=== PATIENT | male | born 1995 | race American Indian/Alaskan Native ===

== ENCOUNTER 2020-04-25 04:02 | Emergency (ER) | payer SELFPAY ==
[2020-04-25] MEDS ORDERED: ALUM-MAG HYDROXIDE-SIMETHICONE 200-200-20MG/5ML ORAL LIQD 30 ML PO ONE (04:24)
[2020-04-25] MEDS ORDERED: LIDOCAINE VISCOUS 2% 15 ML ORAL LIQD PO ONE (04:24)
[2020-04-25] MEDS ORDERED: SODIUM CHLORIDE 0.9% 1000 ML 1,000 ML IV ONE (04:24)
[2020-04-25] MEDS ORDERED: FAMOTIDINE 20 MG/2 ML INJ IV ONE (04:24)
[2020-04-25] MEDS ORDERED: ONDANSETRON 4 MG/2 ML INJ IV ONE (04:25)
--- NOTE | 2020-04-25 05:06 | XRay Report ---
CHEST 1 VIEW INDICATION / CLINICAL INFORMATION: dyspnea. FINDINGS: SUPPORT DEVICES: None. HEART / MEDIASTINUM: No significant abnormality. LUNGS / PLEURA: No significant pulmonary or pleural abnormality. No pneumothorax. ADDITIONAL FINDINGS: No significant additional findings. IMPRESSION: 1. No acute findings. Signer Name: Umair Abreu MD Signed: 04/25/2020 5:01 AM Workstation Name: [id number]
[2020-04-25 05:18] LABS: Basophils % (Auto) 0.3 % (0.0-1.8); Eosinophils % (Auto) 0.3 % (0.0-4.3); Hematocrit 44.8 % (35.5-45.6); Hemoglobin 15.3 gm/dl (11.8-15.2); Lymphocytes # (Auto) 0.9 K/mm3 (1.2-5.4); Lymphocytes % (Auto) 7.3 % (13.4-35.0); Mean Corpuscular HGB Conc 34 % (32-34); Mean Corpuscular Volume 97 fl (84-94); Monocytes # (Auto) 0.8 K/mm3 (0.0-0.8); Monocytes % (Auto) 6.3 % (0.0-7.3); Platelet Count 374 K/mm3 (140-440); Red Blood Count 4.62 M/mm3 (3.65-5.03); Red Cell Distribution Width 14.7 % (13.2-15.2)
[2020-04-25 05:40] LABS: Alanine Aminotransferase 15 units/L (7-56); Albumin 4.5 g/dL (3.9-5); BUN/Creatinine Ratio 6; Blood Urea Nitrogen 9 mg/dL (9-20); Calcium 10.1 mg/dL (8.4-10.2); Hemolysis Index 8
--- NOTE | 2020-04-25 06:27 | Emergency Department Report ---
ED General Adult HPI - General Chief complaint: Dyspnea/Respdistress Stated complaint: ANTONIO Source: patient Mode of arrival: Ambulatory Limitations: No Limitations - History of Present Illness Initial comments: Patient is a 25-year-old -Algerian male with a history of HIV who presents to the ED with acute onset shortness of breath, lightheadedness generalized fatigue and body aches as well as abdominal pain after dancing in a competition about 1 hour ago. Patient states that the dancing was so intense that she is almost passed out because of persistent lightheadedness and shortness of breath. Patient denies syncope, seizures, chest pain, dizziness, diarrhea, nausea and vomiting, headache, dysuria, urinary frequency and urgency, sore throat, nasal and sinus congestion, change in vision or testicular pain. MD Complaint: Lightheadness; Shortness of breath; abdominal pain; fatigue -: Sudden, hour(s) (1) Location: chest, abdomen Radiation: non-radiation Severity scale (0 -10): 3 Quality: aching, dull Consistency: intermittent Improves with: none Worsens with: none Associated Symptoms: denies other symptoms, malaise, shortness of breath, weakness. denies: confusion, chest pain, cough, diaphoresis, fever/chills, headaches, loss of appetite, nausea/vomiting, rash, seizure, syncope Treatments Prior to Arrival: none - Related Data Previous Rx's Medication Instructions Recorded Last Taken Type Dicyclomine [Bentyl] 20 mg PO Q6H PRN #24 tablet 04/25/20 Unknown Rx Famotidine [Pepcid] 20 mg PO BID #60 tablet 04/25/20 Unknown Rx hydrOXYzine PAMOATE [Vistaril] 25 mg PO Q8HR PRN #30 capsule 04/25/20 Unknown Rx Allergies Allergy/AdvReac Type Severity Reaction Status Date / Time ceftriaxone [From Rocephin] Allergy Hives Verified 04/25/20 04:34 ED Review of Systems ROS: Stated complaint: ANTONIO Other details as noted in HPI Constitutional: malaise, weakness. denies: chills, fever Eyes: denies: eye pain, eye discharge, vision change ENT: denies: ear pain, throat pain, dental pain, congestion Respiratory: shortness of breath. denies: cough, wheezing Cardiovascular: denies: chest pain, palpitations Endocrine: no symptoms reported Gastrointestinal: abdominal pain. denies: nausea, vomiting, diarrhea Genitourinary: denies: urgency, dysuria Musculoskeletal: denies: back pain, joint swelling, arthralgia Skin: denies: rash, lesions Neurological: denies: headache, weakness, paresthesias Psychiatric: anxiety. denies: depression Hematological/Lymphatic: denies: easy bleeding, easy bruising ED Past Medical Hx - Past Medical History Previous Medical History?: Yes Hx HIV: Yes Additional medical history: Bronchitis - Surgical History Past Surgical History?: No - Social History Smoking Status: Current Every Day Smoker Substance Use Type: Marijuana - Medications Home Medications: Home Medications Medication Instructions Recorded Confirmed Last Taken Type Dicyclomine [Bentyl] 20 mg PO Q6H PRN #24 tablet 04/25/20 Unknown Rx Famotidine [Pepcid] 20 mg PO BID #60 tablet 04/25/20 Unknown Rx hydrOXYzine PAMOATE [Vistaril] 25 mg PO Q8HR PRN #30 capsule 04/25/20 Unknown Rx ED Physical Exam - General Limitations: No Limitations General appearance: alert, in no apparent distress - Head Head exam: Present: atraumatic, normocephalic, normal inspection - Eye Eye exam: Present: normal appearance, PERRL, EOMI Pupils: Present: normal accommodation - ENT ENT exam: Present: normal exam, normal orophraynx, mucous membranes moist, TM's normal bilaterally, normal external ear exam - Neck Neck exam: Present: normal inspection, full ROM - Respiratory Respiratory exam: Present: normal lung sounds bilaterally. Absent: respiratory distress, wheezes, rales, stridor, chest wall tenderness, accessory muscle use, decreased breath sounds, prolonged expiratory - Cardiovascular Cardiovascular Exam: Present: normal rhythm, tachycardia, normal heart sounds. Absent: systolic murmur, diastolic murmur, rubs, gallop - GI/Abdominal GI/Abdominal exam: Present: soft, normal bowel sounds. Absent: tenderness, hyperactive bowel sounds, hypoactive bowel sounds, organomegaly, mass - Extremities Exam Extremities exam: Present: normal inspection, full ROM, normal capillary refill - Back Exam Back exam: Present: normal inspection, full ROM. Absent: tenderness, CVA tenderness (R), CVA tenderness (L), muscle spasm, paraspinal tenderness, vertebral tenderness - Neurological Exam Neurological exam: Present: alert, oriented X3, CN II-XII intact, normal gait, reflexes normal - Psychiatric Psychiatric exam: Present: normal affect, anxious - Skin Skin exam: Present: warm, dry, intact, normal color. Absent: rash ED Course Vital Signs 04/25/20 04:05 Temperature 97.8 F Pulse Rate 120 H Respiratory 18 Rate Blood Pressure 127/80 O2 Sat by Pulse 96 Oximetry ED Medical Decision Making - Lab Data Result diagrams: 04/25/20 04:50 04/25/20 04:50 - Radiology Data Radiology results: report reviewed, image reviewed Findings [facility] [address] [place] [address] XRay Report Signed Patient: ZULEYKA MUNOZ MR#: [id number] : 1995 Acct:[id number] Age/Sex: 25 / M ADM Date: 04/25/20 Loc: ED Attending Dr: Ordering Physician: DENISE ARGUETA Date of Service: 04/25/20 Procedure(s): XR chest 1V ap Accession Number(s): [id number] cc: DENISE ARGUETA Fluoro Time In Minutes: CHEST 1 VIEW INDICATION / CLINICAL INFORMATION: dyspnea. FINDINGS: SUPPORT DEVICES: None. HEART / MEDIASTINUM: No significant abnormality. LUNGS / PLEURA: No significant pulmonary or pleural abnormality. No pneumothorax. ADDITIONAL FINDINGS: No significant additional findings. IMPRESSION: 1. No acute findings. Signer Name: Umair Abreu MD Signed: 04/25/2020 5:01 AM Workstation Name: [id number] Transcribed By: BC Dictated By: Umair Abreu MD Electronically Authenticated By: Umair Abreu MD Signed Date/Time: 04/25/20500 DD/ 0 TD/TT: - Medical Decision Making This is a 25-year-old -Algerian male with a history of HIV who presents to the ED with acute onset shortness of breath, lightheadedness generalized fatigue and body aches as well as abdominal pain after dancing in a competition about 1 hour ago. Patient states that the dancing was so intense that she is almost passed out because of persistent lightheadedness and shortness of breath. In the ED, patient is alert and oriented x3 and is not in distress but anxious and tachycardic in triage. Chest x-ray shows no acute cardiopulmonary abnormalities or pneumonitis. Lab test results were reviewed and are all nonactionable except for acute leukocytosis of 12,300. Patient declined to give urine for urinalysis. Patient was treated in the ED with antacids, antiemetics and also given normal saline 1 L IV bolus x1. On reevaluation, patient's tachycardia resolved and vital signs are stable. Patient felt better and was discharged home on medications and advised to follow-up with his primary care physician in 5 to 7 days for reevaluation or return to the ED immediately if symptoms get worse. - Differential Diagnosis Anxiety; GERD; muscle spasm; dehydration Critical care attestation.: If time is entered above; I have spent that time in minutes in the direct care of this critically ill patient, excluding procedure time. ED Disposition Clinical Impression: Muscle spasm, Anxiety as acute reaction to exceptional stress, Abdominal pain in male GERD (gastroesophageal reflux disease) Qualifiers: Esophagitis presence: without esophagitis Qualified Code(s): K21.9 - Gastro- esophageal reflux disease without esophagitis Disposition: TO HOME OR SELFCARE Is pt being admited?: No Does the pt Need Aspirin: No Condition: Stable Instructions: Generalized Anxiety Disorder (ED), Gastroesophageal Reflux Disease (ED), Muscle Spasm (ED) Additional Instructions: All lab test results are nonactionable, chest x-ray shows no acute cardiopulmonary abnormalities. Therefore take medications with food, drink plenty of fluids and follow-up with your primary care physician in 5 to 7 days for reevaluation or return to the ED immediately if symptoms get worse. Prescriptions: Dicyclomine [Bentyl] 20 mg PO Q6H PRN #24 tablet PRN Reason: Abdominal pain Famotidine [Pepcid] 20 mg PO BID #60 tablet hydrOXYzine PAMOATE [Vistaril] 25 mg PO Q8HR PRN #30 capsule PRN Reason: Anxiety Referrals: [facility] [Provider Group] - 3-5 Days Time of Disposition: 06:35 Print Language: SRI LANKAN
[2020-04-25 06:34] VITALS: BP 130/87
== END 2020-04-25 06:42 | disposition home or self-care (01) ==
LOC: ED 04:02
DX: K21.9 Gastro-esophageal reflux disease without esophagitis (principal); F41.9 Anxiety disorder, unspecified; F17.200 Nicotine dependence, unspecified, uncomplicated; F12.10 Cannabis abuse, uncomplicated; Z88.1 Allergy status to other antibiotic agents
CPT/HCPCS: 36415; 71045; 80053; 83690; 85025; 96361; 96374; 96375; 99284; J2405; J7030; 80320; G0480